=== PATIENT | male | born 1945 | race Caucasian/White ===

== ENCOUNTER 2016-07-15 14:12 | Inpatient (IN) | payer MEDICARE ==
[~2016-07-15] VITALS: Ht 177.8 cm; Wt 69.0 kg
[2016-07-15 18:35] VITALS: BP 130/81
--- NOTE | 2016-07-15 18:37 | NUR ---
Admission Patient arrived to unit via EMS on [facility], direct admission from [facility]. He has Dx of dementia with BD, Parkinson's. Patient was living at home prior to hospitalization with as caregiver who is now unable to care for him herself. Patient transferred to room 219 bed from [facility] without complications. Patient appears lethargic, snoring, opens eyes slightly in response to name. Patient was grabbing at staff and resistive while nurse and aide changed him. He is currently laying in bed with no signs of distress, VS taken, gold ring removed and placed in safe envelope, will continue to monitor.
--- NOTE | 2016-07-15 21:07 | PDOC ---
Exam Andrae Demential Exam: Andrae Note: Please also refer to the separate dictated note~for this date of service dictated separately.~Patient seen individually. Discussed the patient with Nursing staff reviewed the chart.~Reviewed interim history and current functioning. Reviewed vital signs,~Labs/ Radiology~and current medications noted below. Continue current treatment with the changes noted in the dictated addendum note Assessment: Vital Signs: Vital Signs Date Time Temp Pulse Resp B/P (MAP) Pulse Ox O2 Delivery O2 Flow Rate FiO2 07/15/16 18:35 97.1 62 20 130/81 (97) 94 ALBERTO WILSON MD July 15, 2016 21:07
[2016-07-15] MEDS ORDERED: MELA3TAB2 PO (21:42)
[2016-07-15] MEDS ORDERED: FINA5TAB4 PO (21:42)
[2016-07-15] MEDS ORDERED: RIVA3CAP4 PO (21:42)
[2016-07-15] MEDS ORDERED: ATORVASTATIN CA80 MG PO (21:42)
[2016-07-15] MEDS ORDERED: MESA1.2T PO (21:42)
[2016-07-15] MEDS ORDERED: AZAT50TA PO (21:42)
[2016-07-15] MEDS ORDERED: VIT1TABL81 PO (21:42)
[2016-07-15] MEDS ORDERED: EZET10TA18 PO (21:42)
[2016-07-15] MEDS ORDERED: ASPI325T11 PO (21:42)
[2016-07-15] MEDS ORDERED: VIT1CAPS12 PO (21:42)
[2016-07-15] MEDS ORDERED: VIT1CAPS27 PO (21:42)
[2016-07-15] MEDS ORDERED: MULT1TAB52 PO (21:42)
[2016-07-15] MEDS ORDERED: HYDR-2758 PO (21:42)
[2016-07-15] MEDS ORDERED: CARB1TAB2 PO (21:42)
[2016-07-15] MEDS ORDERED: MAG HYDROX/AL HYDROX/SIMETH 30 ML ORAL.SUSP PO PRN (22:15)
[2016-07-15] MEDS ORDERED: METHYL SALICYLATE/MENTHOL TOPICAL OINTMENT 29GM TUBE. TP PRN (22:15)
[2016-07-15] MEDS ORDERED: ACETAMINOPHEN 325 MG TABLET PO PRN (22:15)
[2016-07-15] MEDS ORDERED: MAGNESIUM HYDROXIDE 2,400 MG/30 ML ORAL.SUSP. PO PRN (22:15)
[2016-07-15 23:37] LABS: BASO # 0.1 x10^3/uL (0.0-0.2); BASO % 1 % (0-3); EOS # 0.2 x10^3/uL (0.0-0.7); EOS % 3 % (0-3); HEMATOCRIT 39.8 % (39.0-53.0); HEMOGLOBIN 13.8 g/dL (13.0-17.5); LYMPH # 0.6 x10^3/uL (1.0-4.8); LYMPH % 10 % (24-48); MEAN CORPUSCULAR HEMOGLOBIN 35 pg (25-35); MEAN CORPUSCULAR HGB CONC 35 g/dL (31-37); MEAN CORPUSCULAR VOLUME 100 fL (79-100); MONO # 0.8 x10^3/uL (0.0-1.1); MONO % 14 % (0-9); NEUT # 4.4 x10^3uL (1.8-7.7); NEUT % 72 % (31-73); PLATELET COUNT 209 x10^3/uL (140-400); RED BLOOD COUNT 3.98 x10^6/uL (4.30-5.70); WHITE BLOOD COUNT 6.1 x10^3/uL (4.0-11.0)
[2016-07-15 23:47] LABS: ALBUMIN 2.9 g/dL (3.4-5.0); ALBUMIN/GLOBULIN RATIO 0.8 (1.0-1.7); CALCIUM 8.6 mg/dL (8.5-10.1); CREATININE 0.8 mg/dL (0.7-1.3); POTASSIUM 4.1 mmol/L (3.5-5.1); TOTAL BILIRUBIN 1.2 mg/dL (0.2-1.0); TOTAL PROTEIN 6.4 g/dL (6.4-8.2)
--- NOTE | 2016-07-16 02:49 | NUR ---
Behavior Intervention Response and Plan: BIRP Note: Behavior: Assumed Care of patient, patient located in Patient Room at shift change. Patient exhibited the following behavior Drowsy, Disorganized, Sleeping. Brief assessment on rounds of vital signs, medication needs, lab studies, and pain. Treatment plan problems Dementia w/ BD, altered Thought Process and Fall Risk. Intervention: Patient assessed and the following interventions initiated safety checks 15 Minute Checks Cognitive Assessment , Head to toe Assessment , Medications. Response: After interactions and interventions patient responded in the following manner, Drowsy , Resistive ,Disorganized. Continue to assess behaviors and condition will continue to monitor throughout the shift as needed. Plan: Continue to monitor Master Treatment Plan for patient's progress toward short term goals of Decreased Agitation, No harm To self/ others, intermediate frame tender goals to return to previous living setting vs placement. Continue to assess patient for changes in above assessment. Monitor for medication needs, pain, and safety concerns. Hourly rounding performed to ensure safe environment.
--- NOTE | 2016-07-16 05:50 | EKG ---
[address] [address] Test Date: 2016-07-16 Test Time: 05:16:50 Pat Name: MORENO MOMIN Department: Room: [address] [place] [address] Gender: M Check Writer: : 1945 Requested By: ALBERTO WILSON Order Number: [id number] Reading MD: Samy Magallanes Measurements Intervals [place] Rate: 90 P: 48 LA: 136 QRS: 15 QRSD: 78 T: 37 QT: 370 QTc: 457 Interpretive Statements SINUS RHYTHM NON-SPECIFIC ST/T CHANGES Electronically Signed On 07-16-2016 9:12:41 CDT by Samy Magallanes
[2016-07-16] MEDS ORDERED: HYDROcodone/APAP 5/325MG 1 TAB TABLET PO PRN (08:00)
[2016-07-16] MEDS ORDERED: FINASTERIDE 5 MG TABLET PO SCH (09:00)
[2016-07-16] MEDS ORDERED: VITAMIN B COMPLEX CAPSULE. PO SCH (09:00)
[2016-07-16] MEDS: azaTHIOprine 50 MG TABLET PO SCH ×2 (09:00→14:47)
[2016-07-16] MEDS ORDERED: [UNRECOGNIZED DRUG - OTHER] PO SCH (09:00)
[2016-07-16] MEDS: MESALAMINE 400 MG PO SCH ×2 (09:00→14:47)
[2016-07-16] MEDS ORDERED: RIVASTIGMINE 3 MG CAPSULE. PO SCH (09:00)
[2016-07-16] MEDS ORDERED: ASPIRIN ENTERIC COATED 325 MG TABLET.DR. PO SCH (09:00)
[2016-07-16] MEDS ORDERED: EZETIMIBE 10 MG TABLET PO SCH (09:00)
[2016-07-16] MEDS ORDERED: MULTIVITAMIN I-VITE TABLET. PO SCH (09:00)
[2016-07-16] MEDS ORDERED: MULTIVITAMIN with MINERAL TABLET. PO SCH (09:00)
--- NOTE | 2016-07-16 09:24 | NUR ---
Patient in wheelchair in dayroom, slumped and drooling. Attempted to feed pureed diet at breakfast, patient pocketed food and then drooled it all out. Holding medications pending assessment by medical doctor.
--- NOTE | 2016-07-16 11:26 | NUR ---
Spoke with Coretta, patients . She stated that one week ago he walked into hospital. The decline that we see happened after he was admitted to the hospital. Patient does not have history of wheelchair use or leaning to the side. While at [facility] he had an MRI, CT and EEG and there was no evidence of a stroke. Patient had been seen by Dr. Alcazar-Neurology at for his Parkinsons. He was experiencing hallucinations May 31, and feels that he has had a marked decline since a trial of Nuplazid.
--- NOTE | 2016-07-16 11:30 | NUR ---
Behavior Intervention Response and Plan: BIRP Note: Behavior: Assumed Care of patient, patient located in Day Room at shift change. Patient exhibited the following behavior Calm, Withdrawn, Drowsy. Brief assessment on rounds of vital signs, medication needs, lab studies, and pain. Treatment plan problems 1 and 2. Intervention: Patient assessed and the following interventions initiated safety checks 15 Minute Checks Cognitive Assessment , Medications , Oral Hydration. Response: After interactions and interventions patient responded in the following manner, Calm , Compliant ,Cooperative. Continue to assess behaviors and condition will continue to monitor throughout the shift as needed. Plan: Continue to monitor Master Treatment Plan for patient's progress toward short term goals of Decreased Agitation, Decreased Aggression, terminal supervisor goals to return to previous living setting vs placement. Continue to assess patient for changes in above assessment. Monitor for medication needs, pain, and safety concerns. Hourly rounding performed to ensure safe environment.
[2016-07-16] MEDS: CARBIDOPA/LEVODOPA 25/100MG TABLET PO SCH ×2 (12:00→14:47)
--- NOTE | 2016-07-16 12:00 | NUR ---
Patient moved into [facility] for safety. Continues to lean to side and is drooling.
--- NOTE | 2016-07-16 12:50 | NUR ---
Psychosocial Assessment completed w/Pt's , Catalina. Pt. was born and raised in [place], [place] w/ 1 sister. Pt's mother was an alcoholic. No other family history of Dementia, Parkinson's or SI/HI noted. 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 Pt. current , Catalina for 51 years. They have 2 daughters named Mali and Silvia. Pt. has no history of alcohol or substance abuse. Pt. diagnosed w/Parkinson's and mild Cognitive Impairment in 2014 and then Dementia w/BD in 2015. 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 In May of 2016, Pt. began exhibiting Hallucinates, telling his there are people in the family room but they would not speak w/him and would report seeing people and animals on the side of the road while driving and his would not see them. Pt's admitted to ER on 07/08/16, Pt. was able to walk into the ER and answer his history questions to check himself in. He drastically declines and when he left, he was not able to walk, leaning in a wc, drooling, and eyes usually closed or only partially open. Pt's states he does suffer from some medical diagnosis, but this physical change in Pt. is very new and very drastic. Catalina would like for PT. to return home, however, Catalina would consider placement in a LTCF if PT. is unable to make any gains.
[2016-07-16 13:31] VITALS: BP 145/102
[2016-07-16 13:44] LABS: THYROID STIM HORMONE (TSH) 1.027 uIU/mL (0.358-3.740)
[2016-07-16 14:02] LABS: CARBAM < 0.5 mcg/mL (4.0-12.0)
[2016-07-16 14:09] LABS: BASO # 0.1 x10^3/uL (0.0-0.2); BASO % 1 % (0-3); EOS % 0 % (0-3); HEMATOCRIT 41.5 % (39.0-53.0); HEMOGLOBIN 14.1 g/dL (13.0-17.5); LYMPH # 0.3 x10^3/uL (1.0-4.8); LYMPH % 4 % (24-48); MEAN CORPUSCULAR HEMOGLOBIN 34 pg (25-35); MEAN CORPUSCULAR HGB CONC 34 g/dL (31-37); MEAN CORPUSCULAR VOLUME 101 fL (79-100); MONO # 0.7 x10^3/uL (0.0-1.1); MONO % 8 % (0-9); NEUT # 6.9 x10^3uL (1.8-7.7); NEUT % 87 % (31-73); PLATELET COUNT 233 x10^3/uL (140-400); RED BLOOD COUNT 4.13 x10^6/uL (4.30-5.70); RED CELL DISTRIBUTION WIDTH 15.6 % (11.5-14.5); WHITE BLOOD COUNT 7.9 x10^3/uL (4.0-11.0)
[2016-07-16 14:25] LABS: BGAS PH 7.47 (7.35-7.46)
[2016-07-16 14:35] LABS: ALBUMIN 3.1 g/dL (3.4-5.0); ALBUMIN/GLOBULIN RATIO 0.7 (1.0-1.7); CALCIUM 9.6 mg/dL (8.5-10.1); GFR 73.5; TOTAL BILIRUBIN 1.2 mg/dL (0.2-1.0); TOTAL PROTEIN 7.7 g/dL (6.4-8.2)
--- NOTE | 2016-07-16 14:44 | RAD ---
Portable chest, 07/16/2016: History: Pneumonia, possible aspiration There has been a previous median sternotomy. The heart size and pulmonary vascularity are normal. There is tortuosity and calcific plaquing of the thoracic aorta. No pulmonary infiltrate is seen. There is no evidence of pleural fluid. There is a moderate amount of gas in large and small bowel loops in the upper abdomen. IMPRESSION: 1. Aortic atherosclerosis and ectasia. 2. No acute cardiopulmonary abnormality is detected.
--- NOTE | 2016-07-16 14:47 | NUR ---
Meds held, patient unable to swallow at this time, remains drowsy. Patient to be moved to ICU per Dr. Reddy.
--- NOTE | 2016-07-16 15:14 | NUR ---
patient discharged to ICU Bed #2 with metabolic encephalopathy/Altered Mental Status.. Advised DPOA/Spouse Coretta by telephone. Belongings sent down with patient. Patient has belongings in safe as well. Will advise Dr. Castro on rounds of discharge.
--- NOTE | 2016-07-16 15:16 | NUR ---
Discharge Note [facility] Patient is not currently a tobacco user. Follow up Appointment made: Patient transferred to ICU Date and Time instructions and Social Work Discharge planning sheet sent to next level of care. 07/16 [facility] Unit contact Number for 24 hour support [phone] Discharge Packet Sent, and discusssed with patient and caregiver that includes Copies from the record of current medications with indications and frequencies, history and physical, Psychiatric Eval with reason and justification for admission, Lab values, Radiology results , follow up instructions for continuation of care, and Social Work discharge planning form: yes Discharge Packet Faxed to Provider/Next Level of Care: yes Discharge Packet Faxed with discharge Order and Discharge diagnosis sent to: ICU Discharge Packet Discussed, and report Given to: Scarlet MONTOYA, ICU Discharge instruction sheet was included in the packet and sent with the patient upon discharge. Any Pending lab results can be obtained by calling [phone] Discharge Summary will be sent to next care provider when available. This includes the reason for admission, DC diagnosis, and next level of care recommendations.
[2016-07-16 18:07] LABS: T3 TOTAL 88 ng/dL (71-180); THYROXINE 8.8 ug/dL (4.5-12.0)
[2016-07-16] MEDS ORDERED: ATORVASTATIN CALCIUM 20 MG TABLET PO SCH (21:00)
[2016-07-16] MEDS ORDERED: MELATONIN 3 MG TABLET PO SCH (21:00)
--- NOTE | 2016-07-17 00:38 | TS ---
DATE OF TRANSFER: 07/16/2016 DISPOSITION: To the Intensive Care Unit. REASON FOR TRANSFER: Encephalopathic. HISTORY OF PRESENT ILLNESS: This is a 71-year-old male who was directly admitted from [facility] yesterday evening where he had been admitted after having worsening problems with hallucinations and aggression at home with his . He has longstanding Parkinson's dementia and hallucinations. He had been started on a new medication, Nuplazid and according to the records, his symptoms became more severe. He pushed his on 07/07/2016. He spent a week at [facility]. The chart was reviewed and among some of the findings was the patient had an NG tube that was actually in his lung, not in his stomach. Unknown whether he received feedings through that or not. He also had respiratory alkalosis with mild hypoxia on ABG yesterday and was diagnosed with acute delirium with hallucinations after receiving on 07/13/2016, IV Toradol 12.5, IV Phenergan and IV Depakote, which was probably 750 mg. After that the patient slept several hours and woke up agitated on the morning of 07/14/2016 where he was again given IV Phenergan. The patient has not improved and was admitted with the diagnosis of dementia with hallucinations. However, viewing the patient today, nursing staff reports he has had nothing to eat or drink for 2 days, has been basically unresponsive, sleeping in a Broda chair and has not urinated either. The patient had a CT at [facility] which revealed global cortical atrophy. The patient had exacerbation of his Parkinson's when given Zyprexa 5 mg on 07/08/2016. PHYSICAL EXAMINATION: VITAL SIGNS: At the time of my exam, blood pressure 145/102, temperature 97.4, pulse 90, respirations 16 and pulse ox was 98% on room air. GENERAL: The patient is I would call semiconscious. He has one eye open, one eye closed. HEENT: The pupils are equal, round, reactive to light. Extraocular muscles are intact. His nose was patent. Throat was dry with extensive mucus on his tongue. NECK: Supple. LUNGS: Clear. CARDIOVASCULAR: Regular rhythm and rate. ABDOMEN: Soft. There were bowel sounds. He was tender in the lower abdomen and his bladder may be distended. EXTREMITIES: Without edema. NEUROLOGIC: He is confused, arousable, but very sleepy. Cannot follow directions, questionable Babinski in his both feet, moves all extremities. LABORATORY DATA: Hemoglobin 14.1, hematocrit 41.5, white blood cell count is 7.9. His ABG still has respiratory alkalosis, pH is 7.47, pCO2 of 24 and HCO3 is 17. Chemistry: BUN was 25, creatinine was 1.0. It was 16 and 0.8 yesterday. His bilirubin is 1.2. Albumin is 3.1, sodium 145. ASSESSMENT: 1. Metabolic encephalopathy. 2. Respiratory alkalosis, questionable etiology, is not hyperventilating and may be mildly hypoxic with an O2 of 75. 3. Parkinson's dementia and hallucinations. 4. Crohn's disease. 5. Dehydration without eating or drinking over the last 2 days. 6. Abdominal pain. PLAN: Initiate workup for metabolic encephalopathy, Neurology consult, hold all antipsychotics and the patient is a DNR. VEDA FRANCES DO DR: LAURIE/guilherme JOB#: [id number] / [id number]
[2016-07-17 02:09] LABS: HEMOGLOBIN A1C 5.8 % (4.8-5.6)
--- NOTE | 2016-07-18 00:50 | DS ---
DATE OF DISCHARGE: 07/16/2016 This is a late entry for 07/16/2016. IDENTIFYING DATA: The patient is a 71-year-old male who was directly admitted [facility] from [facility], where he had spent about a week due to worsening problems with hallucinations and aggression. Prior to that, he was at home with his , who is his primary caregiver. 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 He had also pushed his . At [facility], Nuplazid was added. This made his symptoms worse. He was taken to the ER and admitted to [facility]. MRI, head CT, head was unremarkable other than atrophy. He was also on an NG tube feeding. Nevertheless, he is medically stabilized at the [facility], still extremely psychotic, aggressive, confused, demented, referred to the [facility]. PAST PSYCHIATRIC HISTORY: Progressive memory deficits, being cared for at home by his . PAST MEDICAL HISTORY: Coronary artery disease, four-vessel bypass in 1993, hypertension, Crohn's on Asacol, Parkinson's disease, chronic kidney disease, hyperlipidemia, drug-induced akathisia. ALLERGIES: MORPHINE. CURRENT PSYCHOTROPICS: At the time of admission, Exelon 3 mg twice a day. Nuplazid had been discontinued. PAST SURGICAL HISTORY: Four-vessel coronary artery bypass graft in 1993. SOCIAL HISTORY: Positive for smoking. No alcohol or drug abuse history. 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 REVIEW OF SYSTEMS: No eye, ENT, CV, , GI, pulmonary, eye system symptoms on review. Reliability poor. MENTAL STATUS EXAM: Oriented to himself. Insight, judgment, recent and remote memory, attention, concentration, fund of knowledge poor, consistent with his diagnosis. SIGNIFICANT FINDINGS AND CLINICAL COURSE: Following admission, the patient spent overnight on the [facility]. On 07/16/2016, D-dimer was elevated as was the lactic acid. He was restless, confused with metabolic encephalopathy. He was transferred to the ICU per Dr. Reddy for further medical management on 07/16/2016. All psychotropics were held to see if that would help clear up some of his mental status changes. FINAL DIAGNOSES: Major neurocognitive disorder, possibly Lewy body with depression, delusion, behavioral disturbance; anxiety disorder, unspecified; impulse control disorder, unspecified. Rest diagnoses unchanged. DISCHARGE MEDICATIONS: Please refer to the [facility]. DISCHARGE INSTRUCTIONS: Further followup will be determined after he is stabilized in the ICU. Time for discharge day management greater than 30 minutes. MAN Farhat WILSON MD DR: ENRRIQUE/guilherme JOB#: [id number] / [id number]
--- NOTE | 2016-07-18 03:14 | DS ---
DATE OF DISCHARGE: 07/16/2016 PSYCHIATRIC ADMISSION HISTORY/DISCHARGE SUMMARY IDENTIFYING DATA: The patient is a 71-year-old male who was referred ____ MAN Farhat WILSON MD DR: Calderon JOB#: [id number] / [id number]
== END 2016-07-16 15:20 | disposition short-term general hospital (02) | DRG 56 ==
LOC: GEROPSY 18:26
PROVIDERS: ADMIT Psychiatry & Neurology Psychiatry; ATTEND Psychiatry & Neurology Psychiatry
DX: G20 Parkinson's disease (principal); G93.41 Metabolic encephalopathy; K50.90 Crohn's disease, unspecified, without complications; R44.3 Hallucinations, unspecified; E87.3 Alkalosis; F02.80 Dementia in other diseases classified elsewhere, unspecified severity, without behavioral disturbance, psychotic disturbance, mood disturbance, and anxiety; R09.02 Hypoxemia; E86.0 Dehydration; R10.9 Unspecified abdominal pain; Z88.5 Allergy status to narcotic agent
CPT/HCPCS: 36415; 36600; 71010; 80053; 80061; 80156; 82803; 83036; 83735; 84436; 84443; 84480; 85027; 86592; 86593; 93005

== ENCOUNTER 2016-07-16 15:28 | Inpatient (IN) | payer MEDICARE ==
[2016-07-16] VITALS (10 sets, daily range): BP systolic 131–155; BP diastolic 79–108
[~2016-07-16] VITALS: Ht 180.3 cm; Wt 65.9 kg
[~2016-07-16 15:28] MED LIST: ASPI325T11 PO; ATORVASTATIN CA80 MG PO; AZAT50TA PO; CARB1TAB2 PO; EZET10TA18 PO; FINA5TAB4 PO; HYDR-2758 PO; MELA3TAB2 PO; MESA1.2T PO; MULT1TAB52 PO; RIVA3CAP4 PO; VIT1CAPS12 PO; VIT1CAPS27 PO; VIT1TABL81 PO
[2016-07-16] MEDS ORDERED: MVI, ADULT NO.4 WITH VIT K 10 ML, FOLIC ACID 1 MG, THIAMINE 100 MG in IV NORMAL SALINE ... IV ONE ×4 (16:00)
--- NOTE | 2016-07-16 18:02 | EKG ---
[address] [address] Test Date: 2016-07-16 Test Time: 18:00:28 Pat Name: MORENO MOMIN Department: Room: [facility] 1 Gender: M Sales Commissions Analyst: SANCHEZ : 1945 Requested By: VEDA FRANCES Order Number: [id number] Reading MD: Samy Magallanes Measurements Intervals [place] Rate: 94 P: 43 NH: 132 QRS: 20 QRSD: 84 T: 48 QT: 354 QTc: 448 Interpretive Statements SINUS RHYTHM NON SPECIFIC T ABNORMALITY POSSIBLE LVH Electronically Signed On 07-21-2016 14:02:46 CDT by Samy Magallanes
--- NOTE | 2016-07-16 18:14 | HP ---
ADMIT DATE: REASON FOR TRANSFER TO THE ICU: Altered levels of consciousness/metabolic encephalopathy. HISTORY OF PRESENT ILLNESS: This is a 71-year-old male who was directly admitted up to the [facility] yesterday evening. He came from [facility] where he had been for a week due to worsening problems with hallucinations and aggression. He does live at home with his who is primary caregiver. Apparently, he had been hallucinating more, taking off his clothes for no reason and insisting that he had his clothes on. He would become agitated when his would tell him to put his clothes on and shoved his once he had his medication adjusted for his Parkinson's and was added on Nuplazid; however, according to the records, this made his symptoms more severe. He was taken to the Emergency Department and was admitted. The chart was reviewed and he had an extensive workup including an MRI of the brain, which was normal, a CT of the brain which showed global atrophy. He had constellation of blood tests. It also was noted that he had an NG tube for unknown reasons, which was in his lung rather than his stomach and he also had a Dobhoff tube but not sure when that was placed, but does not have one now. PAST MEDICAL HISTORY: Coronary artery disease with 4-vessel bypass in 1993, hypertension, Crohn's disease, on chronic Asacol, Parkinson's disorder with Parkinson's dementia and hallucinations with significant progression in the last 2 years, chronic kidney disease stage 3, hyperlipidemia, recent diagnoses in the hospital at [place] he was diagnosed with acute delirium with hallucinations, drug-induced akathisia. The patient had received IV Phenergan, IV Depakote and Toradol in the evening of 07/13/2016. He was observed while sleeping after receiving these drugs, swinging his arms in the air, moving his feet and hitting his fist, but was asleep. In the morning of 07/15/2016, he was agitated and given more IV Phenergan. The patient has not received any medications since being admitted yesterday. ALLERGIES: MORPHINE. CURRENT MEDICATIONS: Coming from [place] aspirin 325 mg a day, Lipitor 80 mg a day, azathioprine 50 mg t.i.d., carbidopa/levodopa 25/100 one tablet q.i.d., Zetia 10 mg daily, finasteride 5 mg daily, hydrocodone and Tylenol one to two every 6 hours as needed for pain -- this has been discontinued, melatonin 3 mg at bedtime and 3 mg with supper, Asacol 800 mg t.i.d., Multi-Anita 1 twice a day, Exelon 3 mg b.i.d., vitamin B complex, vitamin E and the Nuplazid had been discontinued. PAST SURGICAL HISTORY: Four-vessel CABG in 1993. SOCIAL HISTORY: The patient smokes cigarettes for 30 years, quit smoking in 1997. No history of alcohol abuse or IV drug abuse. 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 FAMILY HISTORY: No early cardiac disease. The patient's mother of a heart attack at 81 and father at 66 from blood clots. REVIEW OF SYSTEMS: Unable to obtain due to the patient's obtundation. OBJECTIVE: GENERAL: The patient was seen in his room on the [facility]. He had just been taken from the shower. The patient is lying in bed. He has one eye open, one eye closed. I would classify him as extremely sleepy or semiconscious. VITAL SIGNS: His blood pressure was I believe 134/80, sat was normal, pulse was 60. HEENT: EARS: His hearing was normal. EYES: Pupils were equal, round, react to light. Extraocular muscles were intact. His nose was patent. Throat with thickened mucus on the tongue. There were some mild fasciculations. NECK: Supple. LUNGS: Clear. CARDIOVASCULAR: Regular rhythm and rate. ABDOMEN: Soft. Bowel sounds were active; however, he did have lower abdominal tenderness, questionable full bladder. EXTREMITIES: Without edema. NEUROLOGIC: His mental state is altered. He cannot answer questions, cannot follow directions for the cranial nerves, I believe has a Babinski at least on the right with flaccid Reflexes. LABORATORY DATA: Reviewed. He has MCV of 101. His blood gas pH 7.47, pCO2 of 24, HCO3 of 17, pO2 of 74, low normal saturation was 96%. ASSESSMENT: 1. Metabolic encephalopathy. 2. Respiratory alkalosis. 3. Mild protein malnutrition. 4. Advanced Parkinson's dementia with hallucinations. 5. Delirium, which seems to be ongoing which he was diagnosed with at [place]. 6. History of gastric reflux. 7. History of Crohn's disease. 8. Deep venous thrombosis prophylaxis. 9. History of NG tube in the lung, questionable aspiration. Chest x-ray is negative. PLAN: We will hold all sensorium altering medications for now. The patient had nothing to eat or drink for 2 days. We will give him some IV fluids. We will do a workup for delirium including cardiac and D-dimer. We will consult Dr. Blanc as well. VEDA FRANCES DO DR: LAURIE/guilherme JOB#: [id number] / [id number]
[2016-07-16] MEDS ORDERED: diphenhydrAMINE 50 MG/ML VIAL IVP PRN (20:00)
[2016-07-16] MEDS ORDERED: ENOXAPARIN ** NOTE DOSE ** SYRINGE SQ SCH (21:00)
[2016-07-16] MEDS: CARBIDOPA/LEVODOPA 25/100MG TABLET PO SCH (21:29)
--- NOTE | 2016-07-16 21:33 | RAD ---
PROCEDURE VQ lung scan HISTORY Positive D-dimer. Perfusion only. Unable to perform ventilation due to mental status. TECHNIQUE After IV infusion of 5.5 millicuries of technetium 99m MAA, multiplanar images of both lung perry were performed. COMPARISON Chest x-ray dated July 16, 2016. No previous lung scan available. FINDINGS The patient was uncooperative and would not place arms above the head. This study was done with the arms over the chest. This results in perfusion artifacts anteriorly. Otherwise no other segmental perfusion defects are seen. IMPRESSION Artifact related to arms over the chest. No other perfusion defect is seen. Electronically signed by: Nic Ortiz MD (July 16, 2016 21:31:54)
[2016-07-17] VITALS (13 sets, daily range): BP systolic 102–148; BP diastolic 68–97
[2016-07-17 06:27] LABS: ALBUMIN 2.8 g/dL (3.4-5.0); ALBUMIN/GLOBULIN RATIO 0.7 (1.0-1.7); CALCIUM 8.9 mg/dL (8.5-10.1); CREATININE 0.9 mg/dL (0.7-1.3); GFR 82.9; POTASSIUM 4.2 mmol/L (3.5-5.1); TOTAL PROTEIN 6.8 g/dL (6.4-8.2)
[2016-07-17 06:33] LABS: BASO # 0.1 x10^3/uL (0.0-0.2); BASO % 1 % (0-3); EOS # 0.1 x10^3/uL (0.0-0.7); EOS % 2 % (0-3); HEMOGLOBIN 12.9 g/dL (13.0-17.5); LYMPH # 0.7 x10^3/uL (1.0-4.8); LYMPH % 13 % (24-48); MEAN CORPUSCULAR HEMOGLOBIN 35 pg (25-35); MEAN CORPUSCULAR HGB CONC 35 g/dL (31-37); MEAN CORPUSCULAR VOLUME 101 fL (79-100); MONO # 0.8 x10^3/uL (0.0-1.1); MONO % 14 % (0-9); NEUT # 3.9 x10^3uL (1.8-7.7); NEUT % 69 % (31-73); PLATELET COUNT 214 x10^3/uL (140-400); RED BLOOD COUNT 3.67 x10^6/uL (4.30-5.70); RED CELL DISTRIBUTION WIDTH 15.7 % (11.5-14.5); WHITE BLOOD COUNT 5.7 x10^3/uL (4.0-11.0)
--- NOTE | 2016-07-17 08:14 | RAD ---
Examination: Supine and upright views of the abdomen History: History of abdominal pain Comparison: None available Findings: The bibasal lungs grossly appears unremarkable. The bowel loops appear to be pushed somewhat to the left. There is paucity of gas in the right lower quadrant of the abdomen. Impression: The bowel loops appear to be post somewhat to the left with paucity of gas in the right lower quadrant. A mass in the right lower quadrant is not excluded. Follow-up CT can be considered.
[2016-07-17] MEDS: CARBIDOPA/LEVODOPA 25/100MG TABLET PO SCH (09:03)
[2016-07-17 10:56] LABS: BACTERIA,URINE 0 /HPF (0-FEW); BILIRUBIN,URINE NEG (NEG); CLARITY,URINE HAZY; COLOR,URINE AMBER; GLUCOSE,URINE NEG (NEG); NITRITE,URINE NEG (NEG); RBC,URINE OCC /HPF (0-2); SQUAMOUS EPITHELIAL CELL,UR OCC /LPF; UROBILINOGEN,URINE 1 mg/dL (0.2 mg/dL); WBC,URINE OCC /HPF (0-4)
[2016-07-17] MEDS ORDERED: IV NORMAL SALINE 500ML 500 ML IV ONE (11:30)
--- NOTE | 2016-07-17 23:45 | DS ---
DATE OF DISCHARGE: 07/17/2016 DISCHARGE/TRANSFER SUMMARY DISPOSITION: Transfer to Neurological ICU for higher level of care. DISCHARGE DIAGNOSES: 1. Metabolic encephalopathy, questionable etiology. 2. Respiratory alkalosis. 3. Altered mental status. 4. Drug-induced akathisia. 5. Parkinson disease with hallucinations and dementia. 6. History of Crohn's disease, on chronic Asacol. 7. History of chronic kidney disease stage 3, however, no evidence of that. 8. Deep venous thrombosis prophylaxis. 9. Mild protein malnutrition. 10. History of reflux. 11. Mild macrocytic anemia. 12. History of acute delirium with hallucinations. 13. Volume depletion. HOSPITAL COURSE: This is a 71-year-old male who spent a week at [facility] where he actually walked into and was admitted for medication adjustment. The patient was placed on Nuplazid and was having difficulties with increased agitation. During the course of the week at [place], he had had NG tube for feeding, which was stated that it has been in his lung. Unknown whether he received any feeding while within the lung. He also received IV Phenergan, Zyprexa, IV Benadryl, and IV or IM Depakote, which did not improve his situation, and made matters much worse. As it was unclear what the nature of his behavior was, he was accepted to the [facility]. On arrival to the [facility], the patient was obtunded and could not feed himself. He had had nothing to eat or drink for almost two days. I am evaluating him for his medical physical. I deem that he was not appropriate for [facility] and was transferred him down to the ICU. While in the hospital, the patient was given IV fluids, which improved his alertness only slightly. He continued to be very confused, to not be able to swallow very well. He had urinary retention requiring a placement of Harper catheter. He had to be reminded to swallow when he did take his pills, and he had periods of what is described as hypopneic episodes without a significant change in his saturation. PHYSICAL EXAMINATION: VITAL SIGNS: On the day of discharge, his blood pressure was 142/84, pulse 79, respirations 18, temperature 97.5, saturation was 95% on room air. GENERAL: The patient is slightly more alert, but drifts off to sleep very easily and starts to snore loudly. HEENT: The right eye opened more than the left with a little bit of a droop on the left. The pupils were equal and reactive to light and accommodation. His nose is patent. His tongue was midline with slight fasciculations. NECK: Supple. LUNGS: Clear. CARDIOVASCULAR: Regular rhythm and rate. ABDOMEN: Soft. He does have some tenderness in the left lower quadrant. His bladder was full at the time of the exam and a Harper catheter was placed, draining about 1000 mL of moderate yellow urine. EXTREMITIES: Without edema. PSYCH: His mental state is still somewhat stuporous. He is mumbling and cannot answer questions. NEUROLOGIC: The patient cannot squeeze his hands, cannot do [id number]. Reflexes were not assessed today. There has been no really neurologic improvement. LABORATORY DATA: Sodium 145, potassium 4.2, magnesium was 2.0. Albumin is 2.8. Ammonia was less than 10. Urine specific gravity 1.020, slight ketones. CBC: Hemoglobin 12.9, hematocrit 37.0. MCV 101. He had a B12 at [place] which was normal. The D-dimer was 1.43, but his V/Q scan was negative. Abdominal x-rays show some positive gas in the right lower quadrant, mass is not excluded. PLAN: Discussed with transfer team and they discussed with neurologist who agrees to accept him. His neurologist is at . He also had a CT scan of the head as well as MRI and EEG, which were all purported to be normal. VEDA FRANCES DO DR: LAURIE/guilherme JOB#: [id number] / [id number]
--- NOTE | 2016-07-18 01:40 | CONS ---
DATE OF CONSULTATION: 07/17/2016 REFERRING PHYSICIAN: Audra Reddy MD REASON FOR CONSULTATION: Mental status changes and worsening of Parkinson's disease. HISTORY OF PRESENT ILLNESS: This is a 71-year-old right-handed white male, who was [facility] on 07[facility]2016, on account of worsening of his Parkinson symptoms and confusion and behavior disturbances. The patient was transferred to [place] for continuation of care. He has been hallucinating and was placed on Nuplazid for a few days, which worsened his symptoms. A head CT scan and brain MRI revealed evidence of global atrophy, otherwise, unremarkable. The patient has had longstanding history of dementia and currently he is not communicating very well and will follow commands. PAST MEDICAL HISTORY: Significant for dementia and Parkinson disease, there is question of Lewy body dementia, coronary artery disease status post coronary artery bypass graft in 1993, Crohn's disease, hypertension, Parkinson's disease for several years, worsening in the last 2 years, chronic kidney disease, hyperlipidemia. PAST SURGICAL HISTORY: Coronary artery bypass graft. ALLERGIES: MORPHINE. CURRENT MEDICATIONS: Carbidopa/levodopa 25/100 q.i.d. and he is on Lovenox 65 mg given prophylactically and Benadryl 25 mg q. 6 hours p.r.n. IV for agitation and insomnia. REVIEW OF SYSTEMS: A 10-point review of system was performed and consistent with confusion, acute mental status changes, restlessness. PHYSICAL EXAMINATION: GENERAL: Well-developed, well-nourished white male, not in acute distress. He weighs 145.2 pounds. VITAL SIGNS: Blood pressure is 133/82, respiratory rate is 18, pulse is 80 and regular, temperature is 97.5, oxygen saturation 95% on room air. HEENT: Normocephalic, atraumatic, otherwise unremarkable. NECK: Supple. Negative for carotid bruit, lymphadenopathy, thyromegaly. LUNGS: Clear to A and P. CARDIOVASCULAR: Regular rate and rhythm, normal S1, S2. ABDOMEN: Soft. Bowel sounds positive. EXTREMITIES: Negative for cyanosis, clubbing, or pitting edema. MENTAL STATUS: The patient is awake, but does not follow command. He can communicate. Further evaluation of mental status is limited: CRANIAL NERVES: The pupils are reactive to light. Extraocular movements are intact. There is no nystagmus. There is no facial motor or sensory deficit. Hearing is difficult to evaluate. Rest of the cranial nerves is limited to evaluate. Motor examination: The patient has increased tone and rigidity of the upper and lower extremities. There is no obvious resting tremor. The strength is difficult to evaluate as the patient does not participate with the exam. Sensory examination revealed the patient used all his lower extremities to painful stimuli. Deep tendon reflexes were hypoactive with absent Achilles responses. Gait not tested. LABORATORY DATA: CBC revealed white blood cells of 5.7 thousand, hemoglobin 12.9, hematocrit 37, platelet count 214,000. Chemistry: Sodium of 145, potassium 4.2, chloride 110, CO2 29, BUN 27, creatinine 0.9, hematocrit A1c 5.9, glucose 96, calcium 8.9. Liver enzymes are normal. Ammonia is less than 10. Lipid profile is normal except for low HDL cholesterol at 31. Thyroid profile is normal. D-dimer is high at 1.43. Urinalysis negative for urinary tract infection. IMPRESSION: 1. Dementia with Parkinson disease, rule out Lewy body dementia. 2. Acute encephalopathy without any obvious metabolic or infectious process. 3. Multiple medical problems include coronary artery disease, status post coronary artery bypass graft, hyperlipidemia, hypertension and Crohn's disease. RECOMMENDATIONS: 1. Increase carbidopa/levodopa to 25/100 mg every 3 hours p.r.n. while awake, total of 5-6 tablets daily. 2. Continue with current management initiated by Dr. Audra Reddy. M Yfn ZAIDI MD DR: LISA/guilherme JOB#: [id number] / [id number]
--- NOTE | 2016-07-18 01:59 | PN ---
DATE: 07/17/2016 SUBJECTIVE: The patient continues to be confused and disoriented. He is somewhat restless. OBJECTIVE: GENERAL: Well-developed, well-nourished white male, not in acute distress. VITAL SIGNS: Blood pressure 142/84, respiratory rate 18, pulse rate 79, temperature 97.5 and oxygen saturation 98% on room air. HEENT: Normocephalic, atraumatic, otherwise unremarkable. NECK: Supple. Negative for carotid bruit, lymphadenopathy or thyromegaly. LUNGS: Clear to A and P. CARDIOVASCULAR: Regular rate and rhythm, normal S1, S2. ABDOMEN: Soft. Bowel sounds positive. EXTREMITIES: Negative for cyanosis, clubbing or edema. NEUROLOGICAL EXAM: 1. Mental Status: The patient is awake, but cannot communicate, does not follow any commands. Rest of the mental status is difficult to evaluate. 2. Cranial nerves: Pupils are equal and reactive to light. Extraocular movements are intact. There is no nystagmus. There is no facial motor or sensory deficit. Gag reflexes are present. 3. Motor examination: No focal muscle bulk was seen. The tone is increased in the upper and lower extremities. There is no obvious tremor. The strength is 4/5 throughout. Sensory examination, the patient withdrew his extremities to noxious stimuli. Deep tendon reflexes were symmetric and hypoactive with absent Achilles responses. Gait not tested. LABORATORY DATA: CBC revealed white blood cells of 5700, hemoglobin 12.9, hematocrit 37 and platelet count 214,000. Chemistry revealed sodium of 145, potassium 4.2, chloride 110, CO2 of 29, BUN 37, creatinine 0.9. Glucose is 96. IMPRESSION: 1. Dementia with Parkinson disease with possible Lewy body dementia. 2. Multiple medical problems include coronary artery disease, chronic lower back pain, hypertension and hyperlipidemia. RECOMMENDATIONS: The patient will be transferred to [facility] and be evaluated by a psychiatric neurologist over there. Otherwise, continue with current management initiated by Dr. Reddy. M Yfn ZAIDI MD DR: LISA/guilherme JOB#: [id number] / [id number]
== END 2016-07-17 12:39 | disposition short-term general hospital (02) | DRG 71 ==
LOC: ICU 15:28
PROVIDERS: ADMIT Family Medicine; ATTEND Family Medicine
DX: G93.41 Metabolic encephalopathy (principal); E44.1 Mild protein-calorie malnutrition; E87.3 Alkalosis; K50.90 Crohn's disease, unspecified, without complications; F02.81 Dementia in other diseases classified elsewhere, unspecified severity, with behavioral disturbance; F17.210 Nicotine dependence, cigarettes, uncomplicated; E78.5 Hyperlipidemia, unspecified; D53.9 Nutritional anemia, unspecified; E86.9 Volume depletion, unspecified; G89.29 Other chronic pain; I12.9 Hypertensive chronic kidney disease with stage 1 through stage 4 chronic kidney disease, or unspecified chronic kidney disease; I25.10 Atherosclerotic heart disease of native coronary artery without angina pectoris; K21.9 Gastro-esophageal reflux disease without esophagitis; N18.3 Chronic kidney disease, stage 3 (moderate); Z82.49 Family history of ischemic heart disease and other diseases of the circulatory system; Z95.1 Presence of aortocoronary bypass graft; M54.5 Low back pain; N18.9 Chronic kidney disease, unspecified; G25.71 Drug induced akathisia; G20 Parkinson's disease
CPT/HCPCS: 36415; 74020; 78580; 80053; 81001; 82140; 83605; 83735; 84484; 85027; 85379; 87086; 87641; 93005; 96374; A9540; J1650; J7040; J7030